=== PATIENT | female | born 1965 | race Caucasian/White ===

== ENCOUNTER 2018-04-26 14:07 | Outpatient (CLI) | payer BC | END 2018-04-26 14:08 | disposition home or self-care (01) | LOC: BICMAMMO 14:07 | PROVIDERS: ATTEND Obstetrics & Gynecology | DX: Z12.31 Encounter for screening mammogram for malignant neoplasm of breast (principal); Z80.3 Family history of malignant neoplasm of breast | CPT/HCPCS: 77063; 77067 ==

== ENCOUNTER 2020-12-24 09:57 | Outpatient (CLI) | payer BC | END 2020-12-24 09:58 | disposition home or self-care (01) | LOC: BICMRI 09:57 | PROVIDERS: ATTEND Orthopaedic Surgery | DX: S83.242A Other tear of medial meniscus, current injury, left knee, initial encounter (principal); S83.512A Sprain of anterior cruciate ligament of left knee, initial encounter; S80.02XA Contusion of left knee, initial encounter ==

== ENCOUNTER 2021-01-19 14:10 | Outpatient (CLI) | payer BC ==
[2021-01-19 16:55] LABS: #Eosinphils 0.1 10x3/uL (0.0-0.5); #Monocytes 0.3 10x3/uL (0.0-1.1); #Neutrophils 3.4 10x3/uL (1.5-8.4); %Basophils 0.6 % (0.0-2.0); %Eosinophils 2.2 % (0.0-6.0); %Lymphocytes 28.8 % (18.0-47.0); Mean Corpuscular HGB CONC 33.1 g/dL (32.0-36.0); Mean Corpuscular Hemoglobin 30.6 pg (27.0-33.0); Mean Corpuscular Volume 92.3 fl (81.6-98.3); Mean Platelet Volume 10.8 fl (7.4-10.4); Platelet Count 328 10x3/uL (150-450); RBC Distribution Width 12.7 % (11.5-14.5); Red Blood Cell (RBC) Count 3.92 10x6/uL (3.90-5.03); White Blood Cell (WBC) Count 5.4 10x3/uL (3.5-10.5)
[2021-01-19 17:01] LABS: Bilirubin Neg (Negative); Blood, Urine Negative (Negative); Clarity Clear (Clear); Glucose, Urine (Dipstick) Normal (Negative); Ketone, Urine Negative (Negative); Leukocyte Negative (Negative); Nitrite Negative (Negative); Protein, Urine (Dipstick) Negative (Neg-Trace); Urobilinogen Normal mg/dL (Less than 2)
[2021-01-19 17:02] LABS: Anion Gap 13 mmol/L (10-20); BUN (Urea Nitrogen) 13 mg/dL (9.8-20.1); Calc. Creatinine Clearance 0 mL/min (70-130); Calcium 9.3 mg/dL (7.8-10.44); Carbon Dioxide 27 mmol/L (22-29); Chloride 103 mmol/L (98-107); Glucose 104 mg/dL (70-105); Potassium 3.9 mmol/L (3.5-5.1); Sodium 139 mmol/L (136-145)
[2021-01-19 17:45] LABS: Bacteria/HPF None Seen HPF (None Seen); RBC/HPF None Seen HPF (0-3); Squamous Epithelial None Seen HPF (0-3); WBC/HPF None Seen HPF (0-3)
[2021-01-20 01:16] LABS: SARS-CoV-2 PCR by NAA Not Detected (NotDetected)
== END 2021-01-19 14:11 | disposition home or self-care (01) ==
LOC: LABBT 14:10
PROVIDERS: ATTEND Orthopaedic Surgery
DX: Z01.818 Encounter for other preprocedural examination (principal); S83.512A Sprain of anterior cruciate ligament of left knee, initial encounter; S83.222A Peripheral tear of medial meniscus, current injury, left knee, initial encounter; Z20.822 Contact with and (suspected) exposure to COVID-19
CPT/HCPCS: 80048; 81001; 85025; 87635; 93005; 93010; U0003; U0005

== ENCOUNTER 2021-01-22 06:01 | Observation (INO) | payer BC, OTHER ==
[2021-01-21 09:28] VITALS: BMI 26.6
[2021-01-22] MEDS ORDERED: Fentanyl 100 MCG/2 ML VIAL ONE ×3 (06:20→09:59)
[2021-01-22] MEDS ORDERED: Vancomycin 1 GM/200 ML BAG ONE (06:23)
[2021-01-22] MEDS ORDERED: Ondansetron PF 4 MG/2 ML Vial ONE (06:55)
[2021-01-22] MEDS ORDERED: Bupivacaine HCl 0.5%/Epinephrine 1:200,000/PF 30 ml Vial ONE (06:55)
[2021-01-22] MEDS ORDERED: PROPOFOL 200 MG/20 ML VIAL ONE (06:55)
[2021-01-22] MEDS ORDERED: Lidocaine 1% PF 5 ML VIAL ONE (06:55)
[2021-01-22] MEDS ORDERED: Dexamethasone 20 MG/5 ML VIAL ONE (06:55)
[2021-01-22] MEDS ORDERED: ePHEDrine Sulfate 50 MG/10 ML VIAL ONE (06:55)
[2021-01-22] MEDS ORDERED: Midazolam HCl 2 mg/2 ml Vial ONE (06:58)
[2021-01-22] MEDS ORDERED: Scopolamine 1.5 mg/72 hour Patch ONE (06:59)
[2021-01-22] MEDS ORDERED: Lidocaine 1% (PF) 30 ML VIAL ONE (07:13)
[2021-01-22] MEDS ORDERED: Propofol 500 MG/50 ML VIAL ONE (07:29)
[2021-01-22] MEDS ORDERED: Acetaminophen 500 MG TAB PO PRN (07:41)
[2021-01-22] MEDS ORDERED: diphenhydrAMINE 50 MG CAP PO PRN (07:41)
[2021-01-22] MEDS ORDERED: Milk Of Magnesia 30 ML UDCUP PO PRN (07:41)
[2021-01-22] MEDS ORDERED: Bisacodyl 10 MG SUPP PR PRN (07:41)
[2021-01-22] MEDS ORDERED: Zolpidem Tartrate 5 MG TAB PO PRN ×2 (07:41→08:45)
[2021-01-22] MEDS ORDERED: HYDROcodone/Acetaminophen 7.5/325 mg Tablet PO PRN ×2 (07:41)
[2021-01-22] MEDS ORDERED: Morphine 2 MG/ML VIAL SLOW IVP PRN (07:41)
[2021-01-22] MEDS ORDERED: Ondansetron PF 4 MG/2 ML Vial IVP PRN ×2 (07:41→08:45)
[2021-01-22] MEDS ORDERED: Methocarbamol 500 MG TAB PO PRN (07:41)
[2021-01-22] MEDS ORDERED: traMADol HCl 50 MG TAB PO PRN ×3 (07:41→08:45)
[2021-01-22] MEDS ORDERED: Fentanyl 100 MCG/2 ML VIAL IV PRN (08:32)
[2021-01-22] MEDS ORDERED: Ropivacaine 0.2% 550 ML 550 ML NERVE BLCK SCH (08:45)
[2021-01-22] MEDS ORDERED: Ketorolac Tromethamine 30 MG/ML VIAL IVP PRN (08:45)
[2021-01-22] MEDS ORDERED: HYDROcodone/Acetaminophen 10/325 mg Tablet PO PRN ×2 (08:45)
[2021-01-22] MEDS ORDERED: Promethazine HCl 25 MG/ML VIAL IM PRN (08:45)
[2021-01-22] MEDS ORDERED: Non-Formulary Item 1 EACH (Levothyroxine Sodium [Levothyroxine] 50 MCG Capsule) PO SCH (09:00)
[2021-01-22] MEDS ORDERED: Meperidine HCl/PF 25 MG/ML VIAL ONE (09:42)
[2021-01-22] MEDS ORDERED: Ketorolac Tromethamine 30 MG/ML VIAL IVP SCH (12:00)
[2021-01-22] MEDS: CEFAZOLIN 2 GM in Premix Bag 1 BAG IVPB SCH ×2 (12:20→21:38)
[2021-01-22] MEDS: Famotidine 20 MG TAB PO SCH ×2 (12:20→19:51)
[2021-01-22] MEDS: Dextrose 5 %-0.45 % NaCl 1,000 ML IV SCH ×2 (12:21→18:00)
[2021-01-22] MEDS: Vancomycin 1 GM in Premix Bag 1 BAG IVPB SCH (18:00)
[2021-01-22] MEDS ORDERED: Non-Formulary Item 1 EACH (Fluoxetine Hcl [Fluoxetine Hcl] 40 MG Capsule) PO SCH (21:00)
[2021-01-22] MEDS ORDERED: FLUoxetine HCl 20 MG CAP PO SCH (21:00)
[2021-01-22] MEDS ORDERED: Polyethylene Glycol 3350 17 GM Packet PO SCH (21:00)
[2021-01-23] MEDS: Dextrose 5 %-0.45 % NaCl 1,000 ML IV SCH ×2 (05:57→14:02)
[2021-01-23] MEDS ORDERED: Levothyroxine Sodium 50 MCG TAB PO SCH (06:00)
[2021-01-23] MEDS: Vancomycin 1 GM in Premix Bag 1 BAG IVPB SCH (06:09)
[2021-01-23 08:15] VITALS: TEMP 98.3
[2021-01-23] MEDS: Famotidine 20 MG TAB PO SCH (09:34)
[2021-01-23 13:24] VITALS: BP 106/66
== END 2021-01-23 15:55 | disposition home or self-care (01) ==
LOC: SDC 06:01 → SURG A 07:41
PROVIDERS: ADMIT Orthopaedic Surgery; ATTEND Orthopaedic Surgery
PROC: 0SBD4ZZ Excision of Left Knee Joint, Percutaneous Endoscopic Approach (ICD-10-PCS; principal; 2021-01-22)
PROC: 0MRP47Z Replacement of Left Knee Bursa and Ligament with Autologous Tissue Substitute, Percutaneous Endoscopic Approach (ICD-10-PCS; 2021-01-22)
PROC: 3E0T3BZ Introduction of Anesthetic Agent into Peripheral Nerves and Plexi, Percutaneous Approach (ICD-10-PCS; 2021-01-22)
DX: S83.512A Sprain of anterior cruciate ligament of left knee, initial encounter (principal); S83.222A Peripheral tear of medial meniscus, current injury, left knee, initial encounter; G89.18 Other acute postprocedural pain; E07.9 Disorder of thyroid, unspecified; Z79.899 Other long term (current) drug therapy; Z88.5 Allergy status to narcotic agent; W19.XXXA Unspecified fall, initial encounter; Y92.830 Public park as the place of occurrence of the external cause
CPT/HCPCS: 96365; 96375; 96376; A4306; C1713; G0378; J0690; J1100; J2001; J2175; J2250; J2405; J2704; J2795; J3010; J3370